=== PATIENT | female | born 1955 | race Caucasian/White ===

== ENCOUNTER 2020-10-09 07:52 | Outpatient (RCR) | payer OTHER, SELFPAY ==
[2020-10-09] MEDS: COVID-19 VACC, MRNA(PFIZER)/PF 30 MCG/0.3 ML SYRINGE IM (18:35)
[2020-10-30] MEDS: COVID-19 VACC, MRNA(PFIZER)/PF 30 MCG/0.3 ML SYRINGE IM (18:11)
== END 2020-10-09 23:59 ==
LOC: IMMUN 07:52
PROVIDERS: PCP Internal Medicine; Visit Provider Family Medicine
DX: Z23 Encounter for immunization (principal)
CPT/HCPCS: 0001A; 0002A; 91300